=== PATIENT | female | born 2000 | race Caucasian/White ===

== ENCOUNTER 2023-04-06 01:18 | Emergency (ER) | payer BC ==
[~2023-04-06] VITALS: Ht 157.5 cm; Wt 54.4 kg
[2023-04-06 01:52] VITALS: BP 118/84; TEMP 98; O2SAT 99
== END 2023-04-06 03:18 | disposition home or self-care (01) ==
LOC: ER 01:19
DX: S61.011A Laceration without foreign body of right thumb without damage to nail, initial encounter (principal); F17.200 Nicotine dependence, unspecified, uncomplicated; Z60.2 Problems related to living alone; W26.8XXA Contact with other sharp object(s), not elsewhere classified, initial encounter; Y93.89 Activity, other specified; Y92.89 Other specified places as the place of occurrence of the external cause; Y99.8 Other external cause status